=== PATIENT | female | born 1955 | race Caucasian/White ===

== ENCOUNTER 2019-04-07 10:58 | Observation (INO) | payer BC, SELFPAY ==
[2019-01-05 15:23] VITALS: BMI 32.2
--- NOTE | 2019-04-06 23:01 | PCM.HP.BLA ---
History and Physical Date of Admission: 04/07/19 HISTORY OF PRESENT ILLNESS 64 year old woman presents with complaints of painful breasts, worse on the right, secondary to her implants reconstruction about 30 years ago. She states the implants were saline and were textured and placed on top of the muscle. She also has concerns about visible firm deformities bilaterally in the superior area worse on the right. She states her last mammogram was about 2 years ago. When she lifts her right arm above her head, the implant moves superiorly as it appears to be adherent to the underlying muscle. Patient does not know her bra size at this time. She is right hand dominant. She denies fever. She denies nipple discharge. She denies trauma. She denies recent infection. She denies skin retraction or skin dimpling. Patient's last mammogram was on 03/19/19. It was normal with no suspicious lesions noted. She presents at this time for further evaluation and treatment. PAST MEDICAL HISTORY Gallstones gastrointestinal obstruction PAST SURGICAL HISTORY bladder surgery cholecystectomy hernia repair hysterectomy breast implants, bilateral ALLERGIES codeine MEDICATIONS amitriptyline lovastatin FAMILY HISTORY Sister - Arthritis, Cancer Mother - Diabetes, Osteoporosis Father - Heart disease Grandfather - Heart disease Grandmother - Heart disease SOCIAL HISTORY Smoking Status: Former smoker alcohol intake: current substance use type: does not use REVIEW OF SYSTEMS General - Denies fever, fatigue, and weight loss. Eyes - Denies cataracts and glaucoma. ENT - Denies nasal congestion and sore throat. Endocrine - Denies excessive thirst and urination. Has bilateral saline breast implants with painful capsular contractures superiorly. There is family history of breast cancer. Skin - Denies suspicious lesions and skin cancer. Musculoskeletal - Has joint pain, joint stiffness, weakness of muscles and joints, back pain. Denies arthritis. Neuro - Denies headaches. Cardiovascular - Denies chest pain, fatigue, and shortness of breath with exertion. Psych - Denies anxiety and depression. Respiratory - Denies chronic cough and shortness of breath. Patient is a former smoker. Gastrointestinal - Denies nausea, vomiting, diarrhea. Has constipation. Hematologic - Denies abnormal bruising and bleeding. Genitourinary - Denies hematuria and urinary frequency. PHYSICAL EXAMINATION General - Alert and Oriented. HEENT - PERRL. EOMI. Throat is clear. Neck - Supple and nontender. No cervical adenopathy. Breasts - Right breast is a little larger. There is Stage II ptosis bilaterally. There is noticeable firm capsular contracture deformity superiorly, more tender on the right. No breast masses palpable. No axillary adenopathy. Distance from midclavicular line on the right to the nipple is 31 cm and from the nipple to the inframammary fold is 14 cm. Distance from midclavicular line on the left to the nipple is 31 cm and from the nipple to the inframammary fold is 12 cm. The nipple areolar complex diameter is 8 cm bilaterally. Has healed periareolar scars. Lungs - Clear to auscultation. Heart - Regular rate and rhythm. Abdomen - Soft and nondistended. Extremities - FROM. No axillary adenopathy. Radial pulses are palpable. Neuro - CN II-XII grossly intact. Psych - Normal mood and affect. ASSESSMENT 1. 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 2. History of bilateral textured saline implants placed on top of the muscle. 3. Family history of breast cancer. 4. Bilateral breast ptosis. 5. Former smoker. 6. Deformity reconstructed breasts secondary to painful capsular contractures. PLAN Patient's last mammogram was on 03/19/19. It was normal with no suspicious lesions noted. She has painful capsular contractures worse on the right. Her implants are textured saline on top of the muscle. 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 I recommend removal of the saline implants in addition to capsulectomies to minimize the JOVANNI-ALCL risk. Will send tissue to Pathology for analysis to rule out carcinoma and to Microbiology for culture. A positive culture will necessitate antibiotic therapy. Sometimes dense painful capsular contractures can be associated with a chronic subclinical infection. There is no clinical evidence of implant rupture so will not obtain an MRI at this time. Patient is not interested in replacement cohesive gel implants at this time or any additional reconstructive procedures such as a breast lift for symmetry. However, if she were interested in a mastopexy, there would be increased risk of skin loss and wound healing problems because of the initial implants being placed on top of the muscle. The initial implant incisions were periareolar 30 years ago. To obtain better exposure for the capsulectomy, would proceed with an inframammary incision. Surgery would be done under general anesthesia with a surgical observation overnight stay in the hospital. She would be maintained on antibiotics until the drains are removed. Will send a letter to her insurance carrier for medical approval for the procedure. She is not interested in any further breast reconstruction at this time. She is aware that any additional breast reconstruction procedures would be considered cosmetic and she would be financially responsible. She voices understanding. After medical approval has been obtained, will have her come back for a preop visit to further discuss the surgery and to answer any remaining questions she may have and to sign consents. Patient was informed of the risks and complications of the procedure including alternatives to surgery. These were discussed with the patient personally. Patient voices understanding and wishes to proceed with the current plan of obtaining medical approval for removal of the textured saline implants with capsulectomies bilaterally.
[2019-04-07] VITALS (13 sets, daily range): BP systolic 119–150; BP diastolic 57–82; PULSE 76–108; RESP 14–18; TEMP 36.1–36.9; O2SAT 93–100; BMI 33.3
[2019-04-07] MEDS: Scopolamine 1mg/72hr Patch 1 PATCH TRANSDERM. (07:00)
[2019-04-07] MEDS: Lactated Ringers 1,000 ML 40 ML IV ×3 (07:35→12:22)
[2019-04-07] MEDS: Magnesium Sulfate 4gm/100mL 4 GM/100 ML IV.SOLN. IV (07:35)
[2019-04-07] MEDS: Gabapentin 600 MG Tablet PO (07:36)
[2019-04-07] MEDS: Acetaminophen 500 MG Tablet 1000 MG PO ×2 (07:36→17:35)
[2019-04-07 08:06] LABS: Bedside Glucose 95 mg/dL (70-110)
--- NOTE | 2019-04-07 08:55 | FORE_PTH ---
PATIENT: VY BAZZI LOC: MS3 U#:[id number] AGE/SX: 64/F ROOM: [facility] [place] RE04/07/[address]: Dr. Phan Bobo MD : 1955 BED: 1 DIS: 04/08/2019 SPEC #: [id number] RECD: 04/07/19 15:11 STATUS: HEBER RESahra #: [id number] ANA PAULA: 04/07/19 08:[address]: Phan Bobo DEPT: SURGICAL PATHOLOGY RECD BY: Terence Pineda ENTERED: 04/08/19 11:59 SP TYPE: FOREIGN B SUNSHINE DR: Dr. Og Hugo MD Tissues: A - FOREIGN BODY B - FOREIGN BODY Procedures: Surgery Specimen Level III HEADER OPERATION: Breast capsulectomies with removal of textured saline breast implants PRE-OP DIAGNOSIS: Painful capsular contracture deformity; bilateral breast reconstruction; history of bilateral textured saline implants TISSUE SUBMITTED: A - Right implant with capsule, B - Left implant with capsule MICROSCOPIC DIAGNOSIS A. Right implant with capsule: Multiple pieces of implant with focal ragged surface. Fragment of dense fibroconnective tissue consistent with capsule with focal clarifications. B. Left implant with capsule: An intact implant (419.5 gm) with ragged surface. Fragments of dense fibroconnective tissue, consistent with capsule with chronic inflammation and adjacent pieces of fibroadipose and skeletal muscle tissue. SJ:milo 04/09/19 MICROSCOPIC DESCRIPTION Slides are reviewed. GROSS DESCRIPTION A - Received in fixative is one container labeled with the patient's name and designated right implant with capsule. The specimen consists of a breast implant in three pieces measuring in aggregate 14 cm in diameter and 3 cm in depth. The outer surface of the implant is ragged. Multiple smaller fragments of implant are also noted measuring in aggregate 5 x 4.5 x 0.3 cm. Also present in the container are three variable sized pieces of soft tissue consistent with capsule measuring in aggregate 12.5 x 12 x 0.3 cm. No mass lesion is identified. Greenhouse Worker sections are submitted in one cassette. B - Received in fixative is one container labeled with the patient's name and designated left implant with capsule. The specimen consists of a breast implant measuring 14 cm in diameter and up to 4.5 cm in depth and weighs 419.5 gm. The capsular surface of the implant is ragged. In the center, the implant shows an inscription McGhan. Also present in the container is a piece of soft tissue consistent with capsule measuring 13 x 10 x 2 cm. Also present in the container is a beltran, indurated piece of tissue most likely capsule measuring 6 x 4.5 x 1 cm. No mass lesion is identified. Greenhouse Worker sections are submitted in one cassette. / LORENE:milo 04/08/19 TC:5 CPT: 66150 x2
[2019-04-07] MEDS: Cefazolin 2 GM in 0.9% Normal Saline 100 ML IV (09:45)
[2019-04-07] MEDS: Lactated Ringers 1,000 ML 60 ML IV ×2 (10:00→11:30)
--- NOTE | 2019-04-07 10:51 | OP.PCM_ITS ---
Report of Operation Date of Procedure: 04/07/19 Pre-Operative Diagnosis: 1. 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 2. History of bilateral textured saline implants placed on top of the muscle. 3. Family history of breast cancer. 4. Bilateral breast ptosis. 5. Former smoker. 6. Deformity reconstructed breasts secondary to painful capsular contractures. Post-Operative Diagnosis: Same. Surgery/Procedure Performed:: 1. Removal of textured saline implants bilateral breasts. 2. Capsulectomies bilateral breasts. Description of Surgical Findings:: 64 year old woman presents with complaints of painful breasts, worse on the right, secondary to her implants reconstruction about 30 years ago. She states the implants were saline and were textured and placed on top of the muscle. She also has concerns about visible firm deformities bilaterally in the superior area worse on the right. She states her last mammogram was about 2 years ago. When she lifts her right arm above her head, the implant moves superiorly as it appears to be adherent to the underlying muscle. Patient does not know her bra size at this time. She is right hand dominant. She denies fever. She denies nipple discharge. She denies trauma. She denies recent infection. She denies skin retraction or skin dimpling. Patient's last mammogram was on 03/19/19. It was normal with no suspicious lesions noted. She presents at this time for further evaluation and treatment. I used Leila absorbable hemostat, (I used 4 vials, 2 in each breast). Reference Number - [id number]. Lot Number - [id number]. Expiration - January 15, 2024. community engagement coordinator: Alex Corea. Type of Anesthesia:: General Specimen's removed: 1. Textured saline implant and capsule left breast to Pathology and Microbiology. 2. Brittle textured saline implant (ruptured with removal) and capsule right breast to Pathology and Microbiology. Drains: Stiven drain x2 (one in each breast). Estimated Blood Loss (mL): 50 ml. Description of Procedure: In the preop area, I marked out the sternal midline to the umbilicus. I marked out the inframammary folds bilaterally. I nora horizontal markings a cm above the inframammary fold extending from the nipple areolar complex laterally about 7 cm. Patient was taken to OR in supine position and was placed under general anesthesia. The breasts were prepped and draped in the usual fashion. SCD's were placed for DVT prophylaxis. Perioperative antibiotics were given intravenously. Using xylocaine with epinephrine, the horizontal markings were infiltrated. After waiting 5 minutes for the anesthetic to take effect, horizontal incisions were made a cm above the inframammary area. I first worked on the right breast. After dissecting through the subcutaneous tissue, the breast capsule was seen. A capsulotomy was performed and the implant was removed. The textured saline implant was very brittle and the outer shell was calcified. As I pulled it from the breast, it disintegrated and ruptured. No exudate was seen around the implant as the capsule was quite adherent to the implant. A complete capsulectomy was performed over the muscle. The implant was placed in the prepectoral position. This will make mastopexy difficult in the future because of a tenuous blood supply to the nipple areolar complex. Some of the tissue was sent to Pathology for analysis and some of the tissue was sent to Microbiology for culture. Some of the disintegrated implant was sent to Microbiology as well. The rest was sent to Pathology. A positive culture will necessitate antibiotic therapy. Hemostasis was obtained with electrocautery. I irrigated the breast pocket with Irrisept 0.05% Chlorhexidine solution. This was followed by irrigation with saline. A size 15 Stiven drain was placed into the breast pocket through a separate stab incision laterally. It was secured to the skin with 3-0 Nylon suture. To further minimize seroma formation, I sprayed Leila absorbable hemostat into the breast pocket. I used two vials. The wound was then closed in a layered fashion with 3-0 Monocryl figure of eight interrupted sutures for the deep subcutaneous tissue. The deep dermis and subcutaneous tissue was approximated with 3-0 Monocryl interrupted sutures. The skin was approximated with Histoacryl skin tissue adhesive. I then went to the left breast. A horizontal incision was made a cm above in the inframammary area. After dissecting through the subcutaneous tissue, the breast capsule was seen. A capsulotomy was performed and the implant was removed. This implant was calcified as well but not as brittle as the right one. It was still adherent to the capsule, but it was able to be removed without disintegration and rupture. It was not clinically ruptured but appeared wrinkled indicative of some loss of saline from a slow leak. No exudate was present around the implant as the capsule was quite adherent to the implant. A complete capsulectomy was performed over the muscle. The implant was placed in the prepectoral position. This will make mastopexy difficult in the future because of a tenuous blood supply to the nipple areolar complex. Some of the tissue was sent to Pathology for analysis and some of the tissue was sent to Microbiology for culture. Some of the calcified tissue around the implant was sent to Microbiology as well. The implant was sent to Pathology. A positive culture will necessitate antibiotic therapy. Hemostasis was obtained with electrocautery. I irrigated the breast pocket with Irrisept 0.05% Chlorhexidine solution. This was followed by irrigation with saline. A size 15 Stiven drain was placed into the breast pocket through a separate stab incision laterally. It was secured to the skin with 3-0 Nylon suture. To further minimize seroma formation, I sprayed Leila absorbable hemostat into the breast pocket. I used two vials. The wound was then closed in a layered fashion with 3-0 Monocryl figure of eight interrupted sutures for the deep subcutaneous tissue. The deep dermis and subcutaneous tissue was approximated with 3-0 Monocryl interrupted sutures. The skin was approximated with Histoacryl skin tissue adhesive. Her breasts were dressed with Kerlix gauze followed by an GILBERT wrap for compression to minimize seroma formation. Patient tolerated the procedure well and was sent to PACU in satisfactory condition. Patient will be sent upstairs for continued postop care. She will keep her head elevated during the initial postop period. She will have the drains removed in 10-14 days and be maintained on antibiotics until the drains are removed. She will also be on a lifting restriction. Grafts/Implants Used: None. - Complications None. - Admit VTE Documentation VTE Present on Admission: No VTE Mechan Device Prophylaxis: SCD's VTE Pharm Prophylaxis ordered?: Yes Code Visit Surgery Charges CPT - 74466 ICD-10 - T85.44xS, T85.848S, N65.0, Z98.82, Z80.3, Z87.891 [id number] T85.44xS, T85.848S, N65.0, Z98.82, Z80.3, Z87.891
[2019-04-07] MEDS: Scopolamine 1mg/72hr Patch 1 PATCH TD (11:30)
[2019-04-07] MEDS: Gabapentin 100 MG Capsule 200 MG PO ×2 (13:57→17:36)
[2019-04-07] MEDS: Cefazolin 1 GM/50 ML BAG IV ×2 (15:23→22:11)
[2019-04-07] MEDS: Atorvastatin Calcium 10 MG Tablet PO (22:16)
[2019-04-07] MEDS: Docusate Sodium 100 MG Capsule PO (22:16)
[2019-04-07] MEDS: Amitriptyline 25 MG Tablet 75 MG PO (22:16)
[2019-04-08] MEDS: Acetaminophen 500 MG Tablet 1000 MG PO ×3 (00:06→12:13)
[2019-04-08] MEDS: Famotidine 20 MG Tablet PO (03:45)
[2019-04-08 03:50] VITALS: BP 143/67; PULSE 94; RESP 16; TEMP 36.3; O2SAT 98
[2019-04-08] MEDS: Cefazolin 1 GM/50 ML BAG IV (05:42)
[2019-04-08 06:02] LABS: Hematocrit 41.9 % (37-47); Hemoglobin 12.8 g/dL (12.0-15.0); Mean Corp Hgb Conc 30.5 g/dL (32-36); Mean Corpuscular Hgb 28.8 pg (27.0-32.0); Mean Corpuscular Volume 94.2 fL (81-99); Mean Platelet Vol. 10.3 fl (6.2-12.0); Platelet Count 280 K/mm3 (150-450); RBC Distribution Width CV 14.2 % (11.6-14.6); RBC Distribution Width SD 49.1 fl (35.1-43.9); Red Blood Count 4.45 M/mm3 (4.2-5.4); White Blood Count 11.8 K/mm3 (4.4-11.0)
[2019-04-08 06:20] LABS: Anion Gap 6 (5-15); BUN 16 mg/dL (7-18); BUN/Creat Ratio 20.6 RATIO (10-20); Calcium,Total 8.9 mg/dL (8.5-10.1); Chloride 106 mmol/L (98-107); Creatinine, Serum 0.78 mg/dL (0.55-1.02); EST Glomerular Filtration Rate 80 mL/min (>60); Est Glom Filt Rate - Afr Amer 96 mL/min (>60); Glucose 127 mg/dL (74-106); Potassium 4.1 mmol/L (3.5-5.1); Prealbumin 21.3 mg/dL (20.0-40.0); Sodium Level 141 mmol/L (136-145)
[2019-04-08] MEDS: 0.9% Saline Lock 10 ML Syringe IV (06:29)
[2019-04-08 08:07] VITALS: O2SAT 97
[2019-04-08 09:31] VITALS: BP 118/51; PULSE 98; RESP 18; TEMP 36.3; O2SAT 98
[2019-04-08] MEDS: Gabapentin 100 MG Capsule 200 MG PO ×2 (09:38→12:12)
[2019-04-08] MEDS: Docusate Sodium 100 MG Capsule PO (09:39)
[2019-04-08] MEDS: Enoxaparin 40 MG/0.4 ML Syringe SC (09:39)
[2019-04-08] MEDS: Polyethylene Glycol 3350 17 GM PACKET PO (09:40)
[2019-04-08 09:45] VITALS: PULSE 80
--- NOTE | 2019-04-08 12:12 | DCINST_ITS ---
You will use the following diet at home:: No restrictions Discharge Activity: May not drive while taking narcotic pain medications., May Not Shower - until the drains are removed., - - keep head elevated. no heavy lifting. May shower in (days): 14 - after the drains are removed. May resume sexual activity in: 10-14 days Weight Bearing Status: Weight bearing as tolerated Lifting Restrictions: 20 lbs. Keep extremity elevated above heart level: - - elevate head. Call your doctor if your incision/area has: Continuous Slow Oozing, Sudden Increased Bleeding, Increased Pain/ Swelling, Increased Redness, Foul Smelling Discharge, Swelling at the incision site Call your doctor if you observe: Fever of 101 or Higher, Coldness, Increased Pain, Shortness of breath, Chest pain, Calf discomfort, Uncontrolled pain Suture Line Care: - - dry dressings Cleanse incision/area with: - - may get incision wet in the shower after the drains are removed. Drain: Suction - kay drain x2 to bulb suction. empty and record output drainage qdaily. Allergies/Adverse Reactions: Allergies adhesive tape Allergy (Verified 04/07/19 07:22) Rash codeine Allergy (Verified 04/07/19 07:22) ALLERGY Medications to take at Discharge amitriptyline 75 mg tablet 75 mg PO QHS 12/16/18 lovastatin 40 mg tablet 40 mg PO DAILY 12/16/18 Polyethylene Glycol 3350 [Miralax] 17 gm PO DAILY 03/31/19 Ranitidine [Zantac] 150 mg PO DAILY PRN 03/31/19 Cefadroxil [Duricef] 500 mg PO BID #30 cap 04/07/19 Diazepam [Valium] 5 mg PO 4X/DAY PRN PRN #30 tab 04/07/19 Docusate Sodium [Colace] 100 mg PO BID #60 cap 04/07/19 Lactobacillus Acidophilus/Fos [Acidophilus Probiotic Tablet] 1 ea PO BID #30 tab 04/07/19 Oxycodone HCl/Acetaminophen [Percocet 5/325] 1 tab PO Q4H PRN PRN 7 Days #40 tab 04/07/19 proMETHazine tablet [Phenergan tablet] 25 mg PO 4X/DAY PRN PRN #30 tab 04/07/19 Docusate Sodium [Colace] 100 mg PO BID capsule 04/08/19 The following prescriptions were given: Lactobacillus Acidophilus/Fos [Acidophilus Probiotic Tablet] 1 ea PO BID #30 tab Prescription Printed Docusate Sodium [Colace] 100 mg PO BID #60 cap Prescription Printed Cefadroxil [Duricef] 500 mg PO BID #30 cap Prescription Printed Oxycodone HCl/Acetaminophen [Percocet 5/325] 1 tab PO Q4H PRN PRN 7 Days #40 tab PRN Reason: Pain Score 4-5/10 Prescription Printed proMETHazine tablet [Phenergan tablet] 25 mg PO 4X/DAY PRN PRN #30 tab PRN Reason: Nausea Prescription Printed Diazepam [Valium] 5 mg PO 4X/DAY PRN PRN #30 tab PRN Reason: Spasms Prescription Printed Primary Care Physician: Og Hugo MD [Primary Care Provider] - Test Results: Test results from this visit will be discussed in further detail at your follow- up appointment, if applicable. Please Follow Up With: Phan Bobo MD When: one week. call [phone] for appt. Proposed Discharge Date: 04/08/19
[2019-04-08 13:06] VITALS: BP 140/67; PULSE 82; RESP 18; TEMP 36.4; O2SAT 100
--- NOTE | 2019-04-08 17:58 | PCM.PN.SRG ---
Subjective: Postop #1 Patient is resting comfortably. She is tolerating po analgesia. She is anxious to go home. - Physical Exam Vitals/I&O's: Vital Signs Temp Pulse Resp BP Pulse Ox 97.5 F L 82 18 140/67 H 100 04/08/19 13:06 04/08/19 13:06 04/08/19 13:06 04/08/19 13:06 04/08/19 13:06 Oxygen Flow Rate (L/min) 6 Oxygen Delivery Method Room Air Weight: 219 lb 9.286 oz Body Mass Index (BMI) 33.3 Intake and Output for Last 24 Hours 04/06/19 04/07/19 04/08/19 23:59 23:59 23:59 Intake Total 3363.34 / 3363.34 421.75 / 421.75 Output Total 500 / 500 770 / 770 Balance 2863.34 / 2863.34 -348.25 / -348.25 Drainage 100 ml yesterday, 170 ml today. General: Alert, Oriented x3 HEENT: PERRLA, EOMI Oral: Moist Mucosa Neck: Supple Abdomen: Soft, Non-Distended Skin: Incision - bilateral breast incisions are dry and intact. Breasts are soft. No clinical evidence of hematoma. Neurological: Cranial nerves II-XII grossly intact Psych/Mental Status: Normal Affect, Appropriate Microbiology Past 72 Hours 04/07/19 10:10 Wound - Breast Gram Stain - Final 04/07/19 10:10 Wound - Breast Wound Culture - Preliminary No growth-Final to follow 04/07/19 10:10 Wound - Breast Gram Stain - Final 04/07/19 10:10 Wound - Breast Wound Culture - Preliminary No growth-Final to follow Laboratory Results 04/08/19 05:08: Sodium 141, Potassium 4.1, Chloride 106, Carbon Dioxide 29.0, Anion Gap 6, BUN 16, Creatinine 0.78, Estim Creat Clear Calc 73.50, Est GFR (MDRD) Af Amer 96, Est GFR (MDRD) Non-Af 80, BUN/Creatinine Ratio 20.6 H, Glucose 127 H, Calcium 8.9, Prealbumin 21.3 04/08/19 05:08: WBC 11.8 H, RBC 4.45, Hgb 12.8, Hct 41.9, MCV 94.2, MCH 28.8, MCHC 30.5 L, RDW Std Deviation 49.1 H, RDW Coeff of Cherie 14.2, Plt Count 280, MPV 10.3 Medical Necessity - Tobacco Use Smoking Status: Former smoker Assessment/Plan 1. 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 2. History of bilateral textured saline implants placed on top of the muscle. 3. Family history of breast cancer. 4. Bilateral breast ptosis. 5. Former smoker. 6. Deformity reconstructed breasts secondary to painful capsular contractures. 7. s/p removal of textured saline implants bilateral breasts and capsulectomies bilateral breasts. Breasts are soft. Incisions are dry and intact. No clinical evidence of hematoma. She is tolerating po analgesia. Prealbumin was 21.3. Encourage nutritional supplementation with protein to help the healing process. Discharge home today. Keep head elevated. Continue venecia wrap compression and lifting restriction. Wrote scripts for Cefadroxil until the drains are removed and for Acidophilus. Wrote scripts for Percocet for pain (40 tabs) and for Valium for spasm (30 tabs). Wrote scripts for Phenergan for nausea (30 tabs) and a refill and for Colace for constipation (60 tabs). Followup office one week.
== END 2019-04-08 13:33 | disposition home or self-care (01) ==
LOC: ACINP 12:05 → MS3 12:14 → SDC 12:14
PROVIDERS: Admitting Provider Surgery; Family Provider Family Medicine; PCP Family Medicine; Referring Provider Surgery; Visit Provider Surgery
PROC: (CPT 19371; principal; 2019-04-07 08:40)
DX: N64.81 Ptosis of breast (principal); T85.49XA Other mechanical complication of breast prosthesis and implant, initial encounter; T85.44XA Capsular contracture of breast implant, initial encounter; Y81.2 Prosthetic and other implants, materials and accessory general- and plastic-surgery devices associated with adverse incidents; M41.9 Scoliosis, unspecified; K21.9 Gastro-esophageal reflux disease without esophagitis; E78.00 Pure hypercholesterolemia, unspecified; N65.0 Deformity of reconstructed breast; Z80.3 Family history of malignant neoplasm of breast; Z79.899 Other long term (current) drug therapy; Z87.891 Personal history of nicotine dependence
CPT/HCPCS: 19371; 36415; 80048; 82962; 84134; 85027; 87070; 87075; 87102; 87176; 87205; 87206; 88300; 88304; 96365; 96366; 96372; 99218; 99251; J7120; A4216; G0378; G0379; G0463; J2405

== ENCOUNTER 2019-05-14 05:55 | Day surgery (SDC) | payer BC, SELFPAY ==
[2019-04-23 16:23] VITALS: BMI 33.3
[2019-05-14] VITALS (8 sets, daily range): BP systolic 128–161; BP diastolic 69–83; PULSE 83–102; RESP 16–18; TEMP 36.1–37.2; O2SAT 94–98; BMI 33.4
[2019-05-14] MEDS: Lactated Ringers 1,000 ML 100 ML IV ×2 (06:43→10:00)
--- NOTE | 2019-05-14 07:29 | RAD_ITS ---
STUDY: X-RAY CHEST REASON FOR EXAM: Female, 64 years old. cough. pre op TECHNIQUE: PA and lateral views of the chest. COMPARISON: None. FINDINGS: Minimal reticulation left lung base likely represents atelectasis or fibrotic scarring. No airspace consolidation. There is no demonstrated pleural abnormality. Normal size heart. Normal mediastinum and nery. Normal visualized pulmonary arteries. There is atherosclerotic calcification of the aortic arch with tortuosity. There are diffuse degenerative changes of the visualized thoracic spine. Normal visualized ribs, clavicles, and shoulders. There is no demonstrated abnormality of the visualized soft tissue structures of the upper abdomen. RAD/Chest PA and Lateral IMPRESSION: No acute cardiopulmonary process. Electronically Signed: Arnulfo Gong MD ([place]) at 8:08 EST , Service support ,
[2019-05-14] MEDS: Cefazolin 2 GM in 0.9% Normal Saline 100 ML IV (08:30)
--- NOTE | 2019-05-14 08:30 | RAD_ITS ---
STUDY: X-RAY - LEFT ANKLE REASON FOR EXAM: Female, 64 years old. ORIF. TRIMAL FX. 23 IMAGES. TECHNIQUE: Multiple fluoroscopic images of the left ankle. 23 fluoroscopic images. COMPARISON: None. FINDINGS: Multiple fluoroscopic images demonstrate placement of distal fibular fixation plate and screws spanning a distal fibular fracture. There are also 2 fixation screws of the medial malleolus. Apparent distal tibial/fibular fusion. Final images show gross radiographic alignment. RAD/Ankle min 3 Views IMPRESSION: Fluoroscopic guidance for fracture fixation of the left ankle. Please see procedural report. Electronically Signed: Arnulfo Gong MD ([place]) at 12:23 EST , Service support ,
[2019-05-14] MEDS: Bupivacaine Mpf 0.5% 30 ML VIAL (09:00)
--- NOTE | 2019-05-14 12:34 | DCINST_ITS ---
Discharge Diet: No Restrictions Discharge Activity: May Not Drive, May not drive while taking narcotic pain medications., May Not Shower, Use Walker, Use Crutches Weight Bearing Status: No weight bearing Keep extremity elevated above heart level: Left Leg Additional Activity Instructions:: Keep dressing to left leg clean, dry, intact. Do not get dressing wet. If dressing does get wet, call office immediately. Keep left foot and ankle elevated above the level of the heart at all times. Ice behind left knee 20 minutes on, 20 minutes off every hour while awake until follow-up appointment. Take medications as prescribed. Begin taking aspirin on May 15. Begin pain medication immediately if needed. No walking or standing on left foot. Use crutches/walker/wheelchair for assistance. Call your doctor if you observe: Fever of 101 or Higher, Shortness of breath, Chest pain, Increased palpitations (irregular heartbeat), Calf discomfort, Uncontrolled pain Cleanse incision/area with: Keep Dressing Clean & Dry Allergies/Adverse Reactions: Allergies adhesive tape Allergy (Verified 05/07/19 08:17) Rash codeine Allergy (Verified 05/14/19 06:43) Nausea CHLORApREP Allergy (Intermediate, Uncoded 05/07/19 08:17) RASH AND BLISTERS WHERE IT WAS USED Medications to take at Discharge amitriptyline 75 mg tablet 75 mg PO QHS 12/16/18 lovastatin 40 mg tablet 40 mg PO DAILY 12/16/18 Polyethylene Glycol 3350 [Miralax] 17 gm PO DAILY 03/31/19 Ranitidine [Zantac] 150 mg PO DAILY PRN 03/31/19 Acetaminophen [Tylenol Extra Strength] 500 - 1,000 mg PO Q6H PRN PRN 05/07/19 Hydrocodone/Acetaminophen [Hydrocodon-Acetaminophen 5-325] 1 ea PO Q6H PRN PRN 05/07/19 Primary Care Physician: Og Hugo MD [Primary Care Provider] - Test Results: Test results from this visit will be discussed in further detail at your follow- up appointment, if applicable. Please Follow Up With: Antelmo Mcmahon DPM When: 1 week Proposed Discharge Date: 05/14/19
--- NOTE | 2019-05-14 12:36 | PCM.OPRPT ---
Problem List (1) Closed trimalleolar fracture of left ankle Status: Acute Qualifiers: Encounter type: subsequent encounter Fracture healing: with routine healing Qualified Code(s): S82.852D - Displaced trimalleolar fracture of left lower leg, subsequent encounter for closed fracture with routine healing (2) Dislocation of left ankle joint Status: Acute Qualifiers: Encounter type: subsequent encounter Qualified Code(s): S93.05XD - Dislocation of left ankle joint, subsequent encounter Report of Operation Date of Procedure: 05/14/19 Pre-Operative Diagnosis: 1. Left ankle trimalleolar fracture. #2 left ankle joint dislocation. Post-Operative Diagnosis: Same as preoperative Surgery/Procedure Performed:: 1. Open reduction with internal fixation of left fibula fracture. #2 open reduction with internal fixation of left medial malleolus fracture. #3 open reduction with internal fixation of left posterior malleolus fracture. #4 open reduction with internal fixation of left ankle joint dislocation. Description of Surgical Findings:: Consistent with diagnosis. Reduction of deformity achieved and held with internal fixation. Due to multiple hardware placement throughout the left ankle, and due to further disruption of other fracture sites, the syndesmosis was not repaired with internal hardware. parking control officer: Mary Maynard Type of Anesthesia:: General/Regional - with popliteal/saphenous block to left lower extremity Anesthesiologist: Emilio Zapien Special Medications: 2 grams ancef Specimen's removed: None Drains: None Estimated Blood Loss (mL): 50mL Description of Procedure: Pathology: Is none Anesthesia: General with a popliteal saphenous block to left lower extremity Hemostasis: Pneumatic thigh tourniquet placed at the level of left thigh at 300 mmHg for 133 minutes Estimated blood loss: less than 50 mL Materials: #1. Jeannette 7-hole distal lateral fibula plate. 2. Jeannette Asnis 4.0 x 50 mm x 2 3. [place] 3.5 x 14 mm locking screw x4 4. Jeannette 3.5 x 12 mm nonlocking screw x3 5. Jeannette 3.5 x 34 mm nonlocking screw 6. [place] 2.7 x 16 mm nonlocking screw 7. Jeannette 2.7 x 22 millimeters nonlocking screw 8. [place] 2.7 x 24 mm nonlocking screw 9. 0 Vicryl 10. 2-0 Vicryl 11. 3-0 Vicryl 12. 3-0 nylon Injectables: 10 mL of zero 4.5 Marcaine plain extremity saphenous nerve block fashion Complications: Due to the multiple pieces of hardware contained within the tibia and the fracture location of the medial malleolus, any type of fixation that was used to hold the syndesmosis together would not hold. The medial malleolar fracture was noted to distract. Also, to get screw placement across the syndesmosis would interfere with the medial malleolus screws and the posterior malleolus screws. Thus it was decided that the syndesmosis would be left intact to allow healing on its own. I determined that I was going to end up doing harm to the reduced fracture sites by trying to fixate the syndesmosis due to the multiple fractures and multiple placements of hardware. Condition: Stable Indications: Patient is a 64-year-old female with multiple medical problems who suffered a slip and fall at her home on May 04. She presented to the [facility] emergency department for further evaluation. At that time radiographs along with a CT scan were taken. This showed a comminuted trimalleolar fracture with ankle joint dislocation. Patient was closed reduced in the emergency department and a splint was placed on the left lower extremity. Patient was sent to me for follow-up. She subsequently saw me in the office on May 06 for further evaluation. At that time, full discussion was had with the patient about her current clinical condition. Due to the severity of the fractures along with her goals for returns of activities of daily living, I recommended open reduction with internal fixation of the fracture sites. I discussed with the patient that due to her swelling, I would like to wait for the soft tissue to calm down before surgical intervention. I subsequently saw the patient in my office on May 12 for an edema check. At that time, the edema was noted to be significantly reduced and skin lines were present. It was then determined that time the surgical intervention would be performed on May 14. Patient was agreeable to the surgical intervention. Operative report: Before the patient was brought to the operating room, risks, benefits, possible outcomes, possible complications of the procedure discussed with the patient. All the patient questions were answered to her satisfaction and all of her concerns were addressed. No guarantees were made as to the outcome of the procedure. The patient understood all aspects of the procedure, and then consent was then signed by the patient. Before the patient was brought to the operating room, the anesthesiologist administered a popliteal block to left lower extremity. Patient was then brought to the operating room and placed on the operating table in supine position. After timeout, under general anesthesia, a well-padded pneumatic thigh tourniquet was placed to the level of the left thigh. Next the left foot, ankle, leg were then scrubbed, prepped, draped in the usual sterile manner. At that time, 10 cc of 0.5% Marcaine plain was distributed by nm in a proximal saphenous nerve block fashion. Next, live radiographic evaluation was used to determine the level of the distal tip of the lateral malleolus, and the level of the fracture of the lateral malleolus as well. These were marked on the patient. Next the ankle joint line was determined on radiographic evaluation and marked. Furthermore, the borders of the medial malleolus along with the fracture of the medial malleolus were found on radiographic evaluation and marked on the patient. Next the left foot, ankle, leg were then elevated and exsanguinated via Esmarch and inflation with pneumatic thigh tourniquet was performed to 300 mmHg. Attention was directed to the lateral malleolus of the left ankle. At this time a #15 blade was used to perform an incision starting in the distal tip of the lateral malleolus extending proximally to the lateral aspect of the distal one third of the midshaft of the fibula. This incision was deepened utilizing sharp and blunt dissection. Care was taken to retract all vital neural and vascular structures. All bleeders were cauterized and ligated as necessary. At this time a linear periosteal and capsular incision was made in line with the original skin incision. The periosteal and capsular structures were reflected anteriorly and posteriorly, thus exposing the fractured fibula at the operative site. At this time a curette was used to remove any fibrous tissue contained within the fracture sites. The surgical site was then irrigated with copious amounts normal sterile saline. Of note at this time with a multiple comminuted pieces of the fibula. It was then determined that an attempt to throw interfragmentary screws would be performed. At this time the fibula was reduced and held via temporary fixation. Radiographic evaluation was then performed. The fibula was noted to be out to length in the ankle joint mortise. Furthermore the fracture fragments were noted to be reduced to as close to anatomical reduction as possible. It was extremely difficult to reduce these fragments due to the number of fragments and the dislocation of the fibula. Attempt was made to reduce the fractures as best as possible. Reduction was confirmed upon radiographic evaluation. At this time, 3 interfragmentary screws size 2.7 mm nature were placed from anterior superior to posterior inferior across the fracture fragments. Of note during insertion of the screws were the adequate compression of the fracture fragment site. Furthermore no shifting any of the fragments occurred during insertion of the screws. Once the screws were fully inserted, all temporary fixation was then removed. Radiographic evaluation was then performed. The fracture was noted to be held in anatomic position via these interfragmentary screws. Furthermore no shifting any of the fragments occurred during insertion of the screws. At this time the Jeannette 7-hole lateral distal fibular plate was placed over the lateral aspect of the fibula and held via temporary fixation. Radiograph evaluation was performed to determine the exact location of this plate. Once adequate positioning was performed, this plate was held via a mixture of nonlocking and locking screws. Of note the insertion of the screws was adequate compression of the plate to the bone. Furthermore no shifting any of the fragments occurred during insertion of the screws. Care was taken make sure to leave the screw hole at the syndesmosis open for reduction of the syndesmosis. 3 holes above the fracture were filled in the plate and 3 holes below the fracture were filled with the plate. Radiograph evaluation was then performed and the plate was noted to be adhered adequately to the lateral aspect of the fibula. The fibula was noted to be out to length and as close to anatomical reduction was possible. Attention was then directed to the medial malleolus of the left ankle. At this time a curvilinear incision was made starting at the medial aspect of the midportion of the medial malleolus extending distally and anteriorly to the distal tip of the medial malleolus. This incision was deepened utilizing sharp and blunt dissection. Care was taken to retract all vital neural and vascular structures. All bleeders were cauterized and ligated as necessary. At this time the fracture medial malleolus was identified. A curette was used to remove any fibrous tissue contained within this medial malleolus. The surgical site was then irrigated with copious amounts of normal sterile saline. At this time reduction of the medial malleolus was performed and held via temporary fixation. Radiographic evaluation was then performed of the medial malleolus along with the medial gutter of the ankle was noted to be back into anatomical alignment. At this time 2 K wires were placed from the distal tip of the medial malleolus extending superiorly and laterally into the body of the tibia. Current location was confirmed via radiographic evaluation of these K wires. Once confirmed, these were drilled in standard AO fixation. At this time two 4.0 x 50 mm [place] screws were placed over the K wires in standard AO fixation. Of note during insertion of the screws was adequate compression of the medial malleolus fracture. Furthermore no shifting in the fragments occurred during insertion of the screws. Once the screws were fully inserted, all the K wires were then removed. Radiographic evaluation was then performed, and the screws noted to hold the medial malleolus in the correct the reduced position. At this time attention was then directed to the anterior aspect of the left ankle joint. Radiographic evaluation was performed to determine the exact level of the ankle joint. At this time, lateral radiographs were then performed to determine the level of the posterior malleolar fragment. Once determined, a bone reduction clamp was used to reduce the posterior malleolus fragment back into position. Once adequate reduction was performed via this bone clamp, a K wire was driven from the anterior tibia posteriorly through the posterior malleolus. At the level where this K wire entered, an incision was made with a #15 blade. Blunt dissection was continued down deep to the level of the tibia. Next, drilling was performed of this K wire. The K wire was then measured and then removed. At this time a size 3.5 x 34 mm nonlocking screw was inserted through the drill hole in standard AO fixation. Of note during insertion of the screw was adequate compression of the posterior malleolus back into anatomical position. No shifting of the posterior malleolus fracture occurred during insertion of the screw. Once the screw was fully inserted, all temporary fixation was then removed. Radiographic evaluation was then performed and the screw was noted to hold the posterior malleolus in the corrected reduced position. Attention was then directed back to the lateral surgical site. At this time the K wire for the Arthrex tight rope was placed through the syndesmotic hole of the lateral fibula plate. As this was being drilled into the tibia, it was noted to hit the posterior malleolus screw in the medial malleolar screws. Adequate positioning was then found of this K wire. Once this was found, drilling was then performed over the K wire. Unfortunately, as the drill was being performed, the posterior malleolus screw was affecting this drill. Furthermore, the drill was noted to be placed into the medial malleolus fracture. The tight rope was attempted to be placed, but the medial malleolar fracture was distracting. Furthermore, the tight rope was abutting against the posterior malleolar screw. I then determined this time that placing the tight rope would be decreasing the stability and the fixation of the other tibial fractures. It was then determined by me to avoid the tight rope at this time, and if this needs to be fixed at a later date we will perform surgery at a later date for this. Each surgical site was then irrigated with copious amounts of normal sterile saline. The pneumatic thigh tourniquet was then released and a prompt hyperemic response was noted to the entirety of the left lower extremity. All bleeders were cauterized and ligated as necessary at all the surgical sites. The periosteal and capsular structures of the lateral malleolus surgical site were reapproximated and coapted utilizing size 0 Vicryl. The subcutaneous tissue was reapproximated and coapted utilizing 2-0 Vicryl and 3-0 Vicryl. The skin was reapproximated and coapted utilizing 3-0 nylon in a simple interrupted and horizontal mattress fashion. The periosteal and capsular structures the medial malleolus surgical site were reapproximated coapted utilizing 2-0 Vicryl. The skin was reapproximated coapted utilizing 3-0 nylon in a simple interrupted fashion. The subcutaneous tissue of the anterior surgical site was reapproximated coapted using 3-0 Vicryl. The skin was reapproximated coapted utilizing 3-0 nylon in a simple interrupted and horizontal mattress fashion. Each surgical site was then dressed with Betadine soaked gauze, and a dry sterile dressing setting of 4 x 4 gauze wrapped with Kerlix. The left foot and ankle were then wrapped with an Kody bandage. Next a stockinette was placed over the left foot and ankle and leg. Cast padding was wrapped in the metatarsal heads extending proximally to the level just distal to the tibial tuberosity. A posterior splint was fashioned to the left lower extremity and was adhered to the left lower extremity utilizing Kody bandages. Care was taken to make sure that the foot and ankle held in neutral position as the posterior splint dried. The patient tolerated the anesthesia and procedure well and was transported to the PACU with vital signs stable and neurovascular status intact to left lower extremity. After period of postoperative monitoring, the patient will be discharged home with written and oral instructions for wound care and follow-up. The neurosurgical nurse practitioner, the nurse practitioner, was utilized throughout the entire procedure. She helped with patient positioning, holding of limb, holding of retractors. She helped with exposure throughout. She help with wound closure. Without the neurosurgical nurse practitioner, surgical time would have been increased. Surgical outcome could have been less optimal. - Admit VTE Documentation VTE Present on Admission: No
--- NOTE | 2019-05-14 12:50 | RAD_ITS ---
STUDY: X-RAY - LEFT ANKLE REASON FOR EXAM: Female, 64 years old. S/P ORIF LEFT ANKLE TECHNIQUE: 3 view(s) of the ankle. COMPARISON: None. FINDINGS: Fixation screws and plate of the distal fibula with fixation screws projecting over the distal tibia. There is gross radiographic alignment. Expected soft tissue swelling given recent surgery. Normal tibiotalar articulation and ankle mortise. Normal visualized talus and calcaneus. The visualized subtalar, talonavicular, calcaneocuboid and tarsal articulations are normal. RAD/Ankle min 3 Views IMPRESSION: Bimalleolar fracture fixation. No malalignment. Electronically Signed: Arnulfo Gong MD ([place]) at 13:17 EST , Service support ,
== END 2019-05-14 15:19 | disposition home or self-care (01) ==
LOC: SDC 05:55 → AC 05:56
PROVIDERS: Family Provider Family Medicine; PCP Family Medicine; Referring Provider Podiatrist Foot & Ankle Surgery; Visit Provider Podiatrist Foot & Ankle Surgery
DX: S82.852A Displaced trimalleolar fracture of left lower leg, initial encounter for closed fracture (principal); S93.05XA Dislocation of left ankle joint, initial encounter; S93.492A Sprain of other ligament of left ankle, initial encounter; W10.9XXA Fall (on) (from) unspecified stairs and steps, initial encounter; Y93.9 Activity, unspecified; Y92.009 Unspecified place in unspecified non-institutional (private) residence as the place of occurrence of the external cause; Y99.9 Unspecified external cause status; E78.00 Pure hypercholesterolemia, unspecified; K21.9 Gastro-esophageal reflux disease without esophagitis; Z78.0 Asymptomatic menopausal state; Z79.82 Long term (current) use of aspirin; Z79.891 Long term (current) use of opiate analgesic; Z79.899 Other long term (current) drug therapy; Z87.891 Personal history of nicotine dependence
CPT/HCPCS: 27822; 64450; 71046; 73610; 76000; C1713; J7120; J2405